=== PATIENT | male | born 1995 | race Asian ===

== ENCOUNTER 2019-05-11 01:24 | Emergency (ER) | payer BC, OTHER ==
[~2019-05-11] VITALS: Ht 180.3 cm; Wt 108.9 kg
[~2019-05-11 01:24] MED LIST: CETI-101 PO
[2019-05-11 02:02] VITALS: BP_SYST 162
[2019-05-11] MEDS ORDERED: DIPHENHYDRAMINE INJ 50 MG/ML VIAL IVP ONE (02:30)
[2019-05-11] MEDS ORDERED: FAMOTIDINE 20 MG TABLET PO ONE (02:30)
[2019-05-11] MEDS ORDERED: methylPREDNISolone SOD SUCC/PF 62.5 MG/ML VIAL IVP ONE (02:30)
[2019-05-11] MEDS ORDERED: NACL 0.9% 1,000 ML IV ONE (02:30)
[2019-05-11] MEDS ORDERED: EPINEPHrine 1 MG/ML AMP IM ONE (03:30)
[2019-05-11 05:46] VITALS: BP_SYST 125
== END 2019-05-11 05:46 | disposition home or self-care (01) ==
LOC: SED 01:24
DX: T78.2XXA Anaphylactic shock, unspecified, initial encounter (principal)
CPT/HCPCS: 36415; 86710; 96372; 96374; 96375; 99283; J0171; J1200; J2930; J7030